=== PATIENT | female | born 1960 | race Caucasian/White ===

== ENCOUNTER 2023-01-16 08:15 | Outpatient (RCR) | payer OTHER, SELFPAY | END 2023-01-16 14:40 | disposition home or self-care (01) | PROVIDERS: PCP Family Medicine; Visit Provider Family Medicine | DX: M77.10 Lateral epicondylitis, unspecified elbow (principal); Z51.89 Encounter for other specified aftercare | CPT/HCPCS: 97033; 97035; 97140; 97165 ==

== ENCOUNTER 2024-03-02 15:15 | Outpatient (RCR) | payer OTHER, SELFPAY | END 2024-03-25 09:39 | disposition home or self-care (01) | PROVIDERS: PCP Family Medicine; Visit Provider Family Medicine | DX: M79.631 Pain in right forearm (principal); M79.622 Pain in left upper arm; M25.321 Other instability, right elbow; Z51.89 Encounter for other specified aftercare | CPT/HCPCS: 97033; 97035; 97110; 97140; 97165; X5282 ==